=== PATIENT | female | born 1990 | race Caucasian/White ===

== ENCOUNTER 2017-01-07 02:50 | Emergency (ER) | payer OTHER | END 2017-01-07 05:00 | disposition home or self-care (01) | LOC: ER1 02:50 | DX: J40 Bronchitis, not specified as acute or chronic (principal) | CPT/HCPCS: 71020; 84703; 87081; 87880; 99284 ==

== ENCOUNTER 2017-01-08 15:53 | Emergency (ER) | payer OTHER ==
[2017-01-08 16:42] LABS: HEMOGLOBIN 13.8 gm/dl (12.3-15.3); RED BLOOD COUNT 4.83 M/UL (4.00-5.10)
[2017-01-08 16:56] LABS: BUN/CREATININE RATIO 24 (0-10)
== END 2017-01-09 00:55 | disposition home or self-care (01) ==
LOC: ER1 15:53
PROVIDERS: Emergency Medicine
DX: R10.84 Generalized abdominal pain (principal); R11.2 Nausea with vomiting, unspecified
CPT/HCPCS: 36415; 80053; 81001; 82150; 83690; 84703; 85025; 87086; 96374; 96375; 99284; J1885; J2270; J2405; J2550; J7050; Q9962

== ENCOUNTER 2021-03-07 17:36 | Emergency (ER) | payer OTHER ==
[~2021-03-07 17:36] MED LIST: IBUPROFEN600 MG PO; KEFLEX500 MG PO; OMNICEF 300 MG300 MG PO; ZOFRAN ODT4 MG PO
[2021-03-07] MEDS ORDERED: NAPROSYN500 MG PO (18:46)
== END 2021-03-07 18:45 | disposition home or self-care (01) ==
LOC: ER1 17:36
DX: S99.921A Unspecified injury of right foot, initial encounter (principal); W22.8XXA Striking against or struck by other objects, initial encounter; Y92.009 Unspecified place in unspecified non-institutional (private) residence as the place of occurrence of the external cause
CPT/HCPCS: 73610; 73630; 96372; 99283; J1885

== ENCOUNTER 2021-04-17 20:10 | Emergency (ER) | payer OTHER, MEDICAID ==
[~2021-04-17 20:10] MED LIST changes: +NAPROSYN500 MG PO
[2021-04-17 23:06] LABS: HEMOGLOBIN 14.6 gm/dl (12.3-15.3); RED BLOOD COUNT 4.78 M/UL (4.00-5.10); WHITE BLOOD COUNT 13.8 K/UL (4.5-11.0)
[2021-04-17 23:17] LABS: BUN/CREATININE RATIO 16 (0-10)
[2021-04-18] MEDS ORDERED: LODINE CAP 300300 MG PO (04:31)
[2021-04-18] MEDS ORDERED: NORFLEX 100 MG100 MG PO (04:31)
[2021-04-18] MEDS ORDERED: CEPHALEXIN500 MG PO (04:31)
== END 2021-04-18 04:45 | disposition home or self-care (01) ==
LOC: ER1 20:10
PROVIDERS: Physician Assistant
DX: S16.1XXA Strain of muscle, fascia and tendon at neck level, initial encounter (principal); S29.012A Strain of muscle and tendon of back wall of thorax, initial encounter; S30.1XXA Contusion of abdominal wall, initial encounter; S20.212A Contusion of left front wall of thorax, initial encounter; N39.0 Urinary tract infection, site not specified; E11.9 Type 2 diabetes mellitus without complications; E66.01 Morbid (severe) obesity due to excess calories; V49.40XA Driver injured in collision with unspecified motor vehicles in traffic accident, initial encounter; Y92.410 Unspecified street and highway as the place of occurrence of the external cause
CPT/HCPCS: 71045; 72125; 72128; 72131; 80053; 81001; 85025; 87077; 87086; 87186; 99284; Q9967

== ENCOUNTER 2021-09-15 15:40 | Inpatient (IN) | payer OTHER ==
[~2021-09-15] VITALS: Ht 175.3 cm; Wt 222.3 kg
[~2021-09-15 15:40] MED LIST changes: +CEPHALEXIN500 MG PO; +LODINE CAP 300300 MG PO; +NORFLEX 100 MG100 MG PO
[2021-09-15 17:24] LABS: HEMOGLOBIN 15.2 gm/dl (12.3-15.3); RED BLOOD COUNT 5.06 M/UL (4.00-5.10); WHITE BLOOD COUNT 5.6 K/UL (4.5-11.0)
[2021-09-15 17:57] LABS: BUN/CREATININE RATIO 14 (0-10)
[2021-09-17] MEDS ORDERED: PROAIR HFA8.5 GM INH (02:22)
[2021-09-17 07:13] LABS: HEMOGLOBIN 14.6 gm/dl (12.3-15.3); RED BLOOD COUNT 4.95 M/UL (4.00-5.10); WHITE BLOOD COUNT 5.5 K/UL (4.5-11.0)
[2021-09-17 07:32] LABS: BUN/CREATININE RATIO 13 (0-10)
--- NOTE | 2021-09-18 15:03 | NUR ---
PATIENT O2 SAT 94% ON RA WITH AMBULATION.
[2021-09-18] MEDS ORDERED: CEFUROXIME500 MG PO (16:25)
[2021-09-18] MEDS ORDERED: PROTONIX 40 MG40 M1 PO (16:30)
[2021-09-18] MEDS ORDERED: ZOFRAN ODT 4 MG4 MG GT (17:11)
--- NOTE | 2021-09-18 18:27 | NUR ---
DISCHARGED PATIENT HOME. SHE STATED SHE WOULD DRIVE HERSELF HOME BECAUSE SHE DIDN'T WANT TO EXPOSE THE FAMILY MEMBER TAKING CARE OF HER CHILD AND THAT WAS THE ONLY PERSON SHE COULD CALL TO PICK HER UP. SHE SAID SHE FELT SAFE TO DRIVE, THAT SHE "DROVE HERSELF HERE WHEN FEELING WORSE AND CAN DRIVE HERSELF HOME".
== END 2021-09-18 19:10 | disposition home or self-care (01) | DRG 177 ==
LOC: ER1 15:40 → CDU 21:13 → 3 EAST 09-17 01:29 → MED SURG 4 09-17 14:35
PROVIDERS: Emergency Medicine; ADMIT Internal Medicine
PROC: 8E0ZXY6 Isolation (ICD-10-PCS; principal; 2021-09-16)
PROC: XW033E5 Introduction of Remdesivir Anti-infective into Peripheral Vein, Percutaneous Approach, New Technology Group 5 (ICD-10-PCS; 2021-09-16)
PROC: 3E0333Z Introduction of Anti-inflammatory into Peripheral Vein, Percutaneous Approach (ICD-10-PCS; 2021-09-16)
DX: U07.1 COVID-19 (principal); J12.82 Pneumonia due to coronavirus disease 2019; J96.01 Acute respiratory failure with hypoxia; J45.901 Unspecified asthma with (acute) exacerbation; Z68.45 Body mass index [BMI] 70 or greater, adult; E66.01 Morbid (severe) obesity due to excess calories; I10 Essential (primary) hypertension; K76.0 Fatty (change of) liver, not elsewhere classified; I25.10 Atherosclerotic heart disease of native coronary artery without angina pectoris; R74.01 Elevation of levels of liver transaminase levels; E11.9 Type 2 diabetes mellitus without complications; Z79.4 Long term (current) use of insulin; Z98.890 Other specified postprocedural states; Z82.49 Family history of ischemic heart disease and other diseases of the circulatory system; Z83.3 Family history of diabetes mellitus; Z80.8 Family history of malignant neoplasm of other organs or systems; Z79.899 Other long term (current) drug therapy; Z79.01 Long term (current) use of anticoagulants
CPT/HCPCS: 36600; 71045; 80053; 82550; 82553; 82728; 82803; 83615; 83874; 84484; 84703; 85025; 85027; 85379; 86140; 93970; 96365; 96366; 96372; 96374; 96375; 96376; 99285; G0378; J0248; J0696; J1100; J1650; J2405; J2920; J7030; J7050; Q9967; U0002

== ENCOUNTER → 2021-10-15 | Outpatient (CLI) | payer OTHER ==
[~2021-10-15] MED LIST changes: +CEFUROXIME500 MG PO; +PROAIR HFA8.5 GM INH; +PROTONIX 40 MG40 M1 PO; +ZOFRAN ODT 4 MG4 MG GT
== END ==
LOC: HEART 5 04:45
DX: R06.00 Dyspnea, unspecified (principal)
CPT/HCPCS: 94060; 94729

== ENCOUNTER → 2021-11-09 | Outpatient (CLI) | payer OTHER | LOC: SLEEP 12:08 | DX: R40.0 Somnolence (principal); G47.33 Obstructive sleep apnea (adult) (pediatric); R09.02 Hypoxemia | CPT/HCPCS: 95810 ==

== ENCOUNTER 2022-04-08 08:36 | Emergency (ER) | payer OTHER | END 2022-04-08 10:23 | disposition home or self-care (01) | LOC: ER1 08:36 | DX: S83.91XA Sprain of unspecified site of right knee, initial encounter (principal); E66.01 Morbid (severe) obesity due to excess calories; Z79.01 Long term (current) use of anticoagulants; W19.XXXA Unspecified fall, initial encounter | CPT/HCPCS: 73564; 99283 ==